=== PATIENT | female | born 1960 | race Caucasian/White ===

== ENCOUNTER 2018-07-17 16:41 | Emergency (ER) | payer MEDICARE, MEDICAID, SELFPAY ==
[2018-07-17 16:44] VITALS: BP 154/89; PULSE 108; RESP 18; TEMP 36.7; O2SAT 100; BMI 28.2
[2018-07-17 17:07] VITALS: BP 154/89; TEMP 36.7
--- NOTE | 2018-07-17 17:22 | CT_ITS ---
STUDY: CT ABDOMEN AND PELVIS WITHOUT CONTRAST REASON FOR EXAM: Female, 58 years old. Hematuria RADIATION DOSAGE (If Supplied By Facility): CTDIvol = ( 23.69 ) mGy, DLP = ( 1284.40 ) mGycm TECHNIQUE: Transaxial images were obtained from the dome of the diaphragm to the symphysis pubis without oral contrast, and without intravenous contrast. Sagittal and coronal images were reconstructed. Individualized dose optimization techniques were used for this CT. COMPARISON: None. FINDINGS: There are chronic interstitial fibrotic changes of the lung bases. The visualized portions of the heart are within normal limits. Normal liver. There is non-visualization of the gallbladder, which may be secondary to either contraction or a prior cholecystectomy. Normal spleen. Normal pancreas. Normal bilateral adrenal glands. Normal right kidney. Normal left kidney. Normal visualized stomach. Normal small intestine. Retained stool noted throughout the colon. There is non-visualization of the appendix. Normal abdominal aorta. Normal inferior vena cava. Normal retroperitoneum. Bladder contains a Kaplan catheter, as well as some air, air is likely from Kaplan catheter placement. There is also hyperdensity within the bladder suggesting there may be hemorrhage. Bladder calcifications also noted. Uterus is still present, the endometrium cannot be accurately evaluated with CT. Normal abdominal wall. There are diffuse degenerative changes of the visualized lumbar spine, and pelvis. CT/Abdomen/Pelvis without Cont IMPRESSION: Bladder appears abnormal. Despite the presence of a Kaplan catheter, hyperdensities noted within the bladder suggesting hemorrhage. Additionally, there is air within the bladder likely from the Kaplan catheter placement and there are also bladder calcifications noted. Direct visualization may be of benefit. No suspicious solid organ abnormality, specifically, no obstructive uropathy. Uterus still present, the endometrium cannot be accurately evaluated with CT Electronically Signed: Surjit Grigsby MD at 19:28 EDT , Service support ,
[2018-07-17 18:31] VITALS: TEMP 37.1
[2018-07-17 18:47] LABS: Absolute Lymphocyte Count 1.46 X10^3/ul (0.83-4.51); Absolute Neutrophil Count 7.6 X10^3/uL (2.0-7.7); Basophil# 0.01 X10^3/uL; Basophil% 0.1 % (0-1); Hematocrit 36.4 % (37-47); Hemoglobin 10.8 g/dl (12.0-15.0); Lymphocyte # 1.46 X10^3/ul (4.0); Mean Corp Hgb Conc 29.7 g/gl (32-36); Mean Corpuscular Hgb 23.1 pg (27.0-32.0); Mean Corpuscular Volume 77.8 fL (81-99); Mean Platelet Vol. 10.6 fl (6.2-12.0); Monocyte# 0.61 X10^3/uL; Monocyte% 6.3 % (0-10); Neutrophil # 7.64 X10^3/uL (2.7-7.7); Neutrophil % 78.4 % (47-70); Platelet Count 476 K/mm3 (150-450); RBC Distribution Width CV 18.3 % (11.6-14.6); RBC Distribution Width SD 49.8 fl (35.1-43.9); Red Blood Count 4.68 M/mm3 (4.2-5.4); White Blood Count 9.7 K/mm3 (4.4-11.0)
[2018-07-17 18:48] LABS: POSITIVE COUNT NO; POSITIVE DIFFERENTIAL NO; POSITIVE MORPHOLOGY NO
[2018-07-17 19:00] LABS: Anion Gap 5 (5-15); BUN 14 mg/dL (7-18); BUN/Creat Ratio 27.7 RATIO (10-20); Calcium,Total 9.3 mg/dL (8.5-10.1); Chloride 104 mmol/L (98-107); Creatinine, Serum 0.51 mg/dL (0.55-1.02); EST Glomerular Filtration Rate 133 mL/min (>60); Est Glom Filt Rate - Afr Amer 161 mL/min (>60); Estimated Creatinine Clearance 112.56 ml/min; Glucose 117 mg/dL (74-106); Potassium 4.6 mmol/L (3.5-5.1); Sodium Level 136 mmol/L (136-145)
[2018-07-17 19:11] LABS: Bacteria 0 SEEN /hpf (None Seen); Mucous, Urine 0 SEEN /hpf (<or=2+); Squamous Epithelial Cells - UA 0 SEEN /hpf (5-10)
[2018-07-17 19:17] VITALS: BP 165/82; PULSE 112; RESP 18; O2SAT 98
[2018-07-17 19:22] LABS: Color, Urine Red (Yellow); Glucose, Dipstick Normal (Normal); Ketone-Dipstick 15 mg/dl (Negative); Leukocyte Esterase-Dipstick Negative /ul (Negative); Nitrite-Dipstick Negative (Negative); Occult Blood-Urine 250 /ul (Negative); Protein-Dipstick 500 mg/dl (Negative); Urine Bilirubin Dipstick Negative (Negative); Urine Clarity Turbid (Clear); Urine Urobilinogen Normal (Normal)
[2018-07-17 19:57] LABS: Prothrombin Time (Protime)PT. 12.6 SECONDS (11.7-14.9)
[2018-07-17 19:58] LABS: Partial Thromboplast Time 32.6 Seconds (24.1-36.2)
[2018-07-17 20:13] LABS: Red Blood Cells-Urine > 100 SEEN /hpf (0-5); White Blood Cells 5-10 SEEN /hpf (0-5)
--- NOTE | 2018-07-17 21:34 | ED.DCSUM_ITS ---
- ER Visit Summary Date of Service: 07/17/18 Chief Complaint: Hematuria History of Present Illness: The patient is a 58 F with MS and a history of suprapubic catheter. Catheter was changed just over a week ago as planned. Today she is having bleeding. It is bright red blood. She never had this before. Denies blood thinner use. Denies history of kidney stones. She does have some pain to the area. Her urine has been flowing well. Physical Examination: Afebrile and vital signs unremarkable. Skin appears normal. No respiratory distress. Heart regular. Patient has bright red blood in her catheter bag, red wine colored. Test Results: Urinalysis shows blood but no definite sign of infection. Culture pending. Laboratory studies all unremarkable. CT showed the Kaplan catheter and an irregular bladder concerning for blood. They recommended direct visualization. Otherwise skin unremarkable. Emergency Department Course and Treatment: Patient had blood work, urine testing, and imaging. She declined pain meds. Work-up showed the findings above. We did attempt to contact her urologist. We were referred to the [facility]. I spoke with the on-call doctor there. She advised that if the patient is having good urine flow, she should follow-up with her urologist in the morning. Her office will also check in with the patient to make sure she has follow-up. Patient voiced understanding and agreement. She is stable now based on her laboratory findings and vitals. If she has increasing bleeding or any other complications, she should return to the ED. Treatment Plan: As above Disposition: Discharge Impression: 1. Hematuria This note was generated with [employer] dictation software. It may contain incorrect words, spelling, and punctuation that were not noted in review of the chart prior to signing ED Disposition - Plan for ED Patient: Disposition: Home or Assisted Living Instructions: ED Hematuria Additional Instructions: follow up with your urologist tomorrow
--- NOTE | 2018-07-17 21:34 | ED.DEP ---
ED Disposition - Plan for ED Patient: Instructions: ED Hematuria Additional Instructions: follow up with your urologist tomorrow
[2018-07-17 22:03] VITALS: BP 161/84; PULSE 110; RESP 18; O2SAT 98
--- NOTE | 2018-07-17 22:05 | ED.RN ---
PT AWAITING STAFF FROM TCU TO ASSIST WITH TIM LIFT INTO WHEELCHAIR.
--- NOTE | 2018-07-17 22:36 | ED.RN ---
tony lift in ct was used to get pt from bed to personal wheelchair with meat grading machine operator directing machine. pt tolerated procedure well and was safely installed into wheelchair.
== END 2018-07-17 22:36 | disposition home or self-care (01) ==
PROVIDERS: Emergency Provider Emergency Medicine; Family Provider Family Medicine; PCP Family Medicine
DX: R31.9 Hematuria, unspecified (principal); G35 Multiple sclerosis
CPT/HCPCS: 74176; 80048; 81001; 85025; 85610; 85730; 87077; 87086; 87088; 87186; 99283; A4216

== ENCOUNTER → 2023-06-27 | Outpatient (CLI) | payer MEDICARE, MEDICAID, SELFPAY ==
--- NOTE | 2023-06-27 13:35 | RAD_ITS ---
STUDY: X-RAY - CERVICAL SPINE REASON FOR EXAM: Female, 63 years old. Other cervical disc degeneration, unspecified cervical region TECHNIQUE: 3 view(s) of the cervical spine were obtained. COMPARISON: None FINDINGS: Normal anterior atlantoaxial articulation. Normal odontoid process. Normal cervical lordosis. Normal vertebral bodies and endplates. Normal disc space heights. Normal visualized intervertebral neuroforamina. The soft tissue structures are unremarkable. RAD/Cerv Spine 2 or 3 Views IMPRESSION: Normal x-ray examination of the visualized cervical spine. Electronically Signed: Colt Sun MD at 0:01 EDT ,
== END | disposition home or self-care (01) ==
LOC: RAD 13:22
PROVIDERS: PCP Family Medicine; Referring Provider Anesthesiology Pain Medicine; Visit Provider Anesthesiology Pain Medicine
DX: M50.30 Other cervical disc degeneration, unspecified cervical region (principal)
CPT/HCPCS: 72040

== ENCOUNTER → 2023-07-05 | Outpatient (CLI) | payer MEDICARE, MEDICAID, SELFPAY ==
[2023-07-05 16:03] LABS: Amphetamine Urine VISTA NEGATIVE (<1000 ng/mL); Barbiturate Urine VISTA NEGATIVE (< 200 ng/mL); Benzodiazepine Urine VISTA NEGATIVE (< 200 ng/mL); Cocaine Urine VISTA NEGATIVE (< 300 ng/mL); Ecstacy Urine VISTA NEGATIVE (< 500 ng/mL); Methadone Urine VISTA NEGATIVE (< 300 ng/mL); PCP Urine VISTA NEGATIVE (< 25 ng/mL); THC Urine VISTA NEGATIVE (< 50 ng/mL); Vista UDS pH Range 7
[2023-07-05 16:15] LABS: OXY Internal Control LINE = VALID (VALID); Oxycodone Drug Screen Positive (<100 ng/mL)
== END | disposition home or self-care (01) ==
LOC: LAB 14:35
PROVIDERS: PCP Family Medicine; Referring Provider Anesthesiology Pain Medicine; Visit Provider Anesthesiology Pain Medicine
DX: F11.20 Opioid dependence, uncomplicated (principal)
CPT/HCPCS: 80307; 80365; G0480

== ENCOUNTER → 2024-04-10 | Outpatient (CLI) | payer MEDICARE, MEDICAID, SELFPAY ==
[2024-04-10 12:57] LABS: Amphetamine Urine NEGATIVE (<1000 ng/mL); Barbiturate Urine VISTA NEGATIVE (< 200 ng/mL); Benzodiazepine Urine VISTA NEGATIVE (< 200 ng/mL); Cocaine Urine VISTA NEGATIVE (< 300 ng/mL); Ecstacy Urine VISTA NEGATIVE (< 500 ng/mL); Methadone Urine VISTA NEGATIVE (< 300 ng/mL); PCP Urine VISTA NEGATIVE (< 25 ng/mL); THC Urine VISTA NEGATIVE (< 50 ng/mL); Vista UDS pH Range 5
== END | disposition home or self-care (01) ==
LOC: LAB 11:52
PROVIDERS: PCP Family Medicine; Referring Provider Anesthesiology Pain Medicine; Visit Provider Anesthesiology Pain Medicine
DX: F11.20 Opioid dependence, uncomplicated (principal)
CPT/HCPCS: 80307

== ENCOUNTER → 2024-11-25 | Outpatient (CLI) | payer MEDICARE, MEDICAID, SELFPAY ==
[2024-11-25 15:13] LABS: Barbiturate Urine NEGATIVE (< 200 ng/mL); Benzodiazepine Urine NEGATIVE (< 200 ng/mL); PCP Urine NEGATIVE (< 25 ng/mL); THC Urine NEGATIVE (< 50 ng/mL)
== END | disposition home or self-care (01) ==
PROVIDERS: PCP Family Medicine; Referring Provider Anesthesiology Pain Medicine; Visit Provider Anesthesiology Pain Medicine
DX: F11.20 Opioid dependence, uncomplicated (principal)
CPT/HCPCS: 80307